=== PATIENT | female | born 1955 | race Caucasian/White ===

== ENCOUNTER → 2017-08-12 10:12 | Outpatient (CLI) | payer MEDICARE, MEDICAID, SELFPAY ==
[2017-08-12 11:43] LABS: Microalbumin:Creatinine Ratio 529.4 mg/g CRE (<30 mg/g CRE)
[2017-08-12 12:01] LABS: ALB/GLOB Ratio 0.9 RATIO (0.9-2.4); AST(SGOT) 21 U/L (15-37); Alanine Aminotransfer ALT/SGPT 21 U/L (13-56); Albumin, Serum 3.4 g/dL (3.2-5.0); Alkaline Phosphatase 199 U/L (45-117); Anion Gap 10 (5-15); BUN 39 mg/dL (7-18); BUN/Creat Ratio 12.1 RATIO (10-20); Calcium,Total 9.7 mg/dL (8.5-10.1); Chloride 102 mmol/L (98-107); Cholesterol 200 mg/dL (200); Creatinine, Serum 3.22 mg/dL (0.55-1.02); EST Glomerular Filtration Rate 16 mL/min (>60); Est Glom Filt Rate - Afr Amer 19 mL/min (>60); Globulin 3.6 g/dL (2.2-4.2); Glucose 138 mg/dL (74-106); Hemoglobin A1c 7.5 % (4.2-6.3); High Density Lipoprotein 40 mg/dL; Potassium 4.4 mmol/L (3.5-5.1); Sodium Level 140 mmol/L (136-145); T4 Free Direct 0.99 ng/dL (0.76-1.46); Thyroid Stim Hormone (TSH) 1.57 uIU/mL (0.358-3.74); Triglycerides 189 mg/dL; Very Low Density Lipoprotein 38 mg/dL (5-40)
== END ==
PROVIDERS: Visit Provider Nurse Practitioner
DX: I12.9 Hypertensive chronic kidney disease with stage 1 through stage 4 chronic kidney disease, or unspecified chronic kidney disease (principal); E10.22 Type 1 diabetes mellitus with diabetic chronic kidney disease; N18.4 Chronic kidney disease, stage 4 (severe); R53.81 Other malaise; R53.82 Chronic fatigue, unspecified
CPT/HCPCS: 36415; 80053; 80061; 82043; 82570; 83036; 84439; 84443

== ENCOUNTER → 2017-10-01 09:11 | Outpatient (CLI) | payer MEDICARE, MEDICAID, SELFPAY ==
[2017-10-01 10:40] LABS: Glucose 100 mg/dL (74-106)
[2017-10-03 08:17] LABS: C-Peptide < 0.1 ng/mL (1.1-4.4)
== END ==
PROVIDERS: Visit Provider Nurse Practitioner
DX: E10.9 Type 1 diabetes mellitus without complications (principal); N18.4 Chronic kidney disease, stage 4 (severe)
CPT/HCPCS: 36415; 82947; 84681